=== PATIENT | female | born 1960 | race Caucasian/White ===

== ENCOUNTER → 2016-10-21 | Outpatient (CLI) | payer OTHER ==
[~2016-10-21] VITALS: Ht 158.8 cm; Wt 93.0 kg
[~2016-10-21] MED LIST: LIDOCAINE 2% INJ 100 MG/5 ML SDV (FOR ANES.) As Ordered ONE; LISI10TA2 PO; LOVA40TA PO; NAPR500T2 PO; NS 1,000 ML IV SCH; OMEP20CA3 PO; PROPOFOL 200 MG/20 ML VIAL As Ordered ONE; VICO5TAB16 PO
--- NOTE | 2016-10-21 08:53 | ROOR ---
Patient Name: Fritz Moon Procedure Date: 10/21/2016 8:28 AM Date of : 1960 Age: 56 Room: [facility] Gender: Female Note Status: Finalized Procedure: Upper GI endoscopy Indications: Heartburn Providers: DO Darrel Soliz MD: Darcy Jewell NP Requesting Provider: Medicines: Propofol per Anesthesia Complications: No immediate complications. Estimated blood loss: Minimal. Procedure: Pre-Anesthesia Assessment: - Prior to the procedure, a History and Physical was performed, and patient medications and allergies were reviewed. The patient is competent. The risks and benefits of the procedure and the sedation options and risks were discussed with the patient. All questions were answered and informed consent was obtained. Patient identification and proposed procedure were verified by the physician, the nurse, the anesthesiologist and the communications engineering technician in the endoscopy suite. Mental Status Examination: alert and oriented. Airway Examination: normal oropharyngeal airway and neck mobility. Respiratory Examination: clear to auscultation. CV Examination: normal. Prophylactic Antibiotics: The patient does not require prophylactic antibiotics. Prior Anticoagulants: The patient has taken no previous anticoagulant or antiplatelet agents. ASA Grade Assessment: II - A patient with mild systemic disease. After reviewing the risks and benefits, the patient was deemed in satisfactory condition to undergo the procedure. The anesthesia plan was to use monitored anesthesia care (MAC). Immediately prior to administration of medications, the patient was re-assessed for adequacy to receive sedatives. The heart rate, respiratory rate, oxygen saturations, blood pressure, adequacy of pulmonary ventilation, and response to care were monitored throughout the procedure. The physical status of the patient was re-assessed after the procedure. The Endoscope was introduced through the mouth, and advanced to the second part of duodenum. The upper GI endoscopy was accomplished without difficulty. The patient tolerated the procedure well. Findings: A small hiatal hernia was present. Localized mild inflammation characterized by congestion (edema), erythema and friability was found in the prepyloric region of the stomach. Biopsies were taken with a cold forceps for Helicobacter pylori testing. Estimated blood loss was minimal. The exam was otherwise without abnormality. Impression: - Small hiatal hernia. - Gastritis. Biopsied. - The examination was otherwise normal. Recommendation: - Patient has a contact number available for emergencies. The signs and symptoms of potential delayed complications were discussed with the patient. Return to normal activities tomorrow. Written discharge instructions were provided to the patient. - Return to my office PRN. Bertin Sommer DO 10/21/2016 8:53:23 AM This report has been signed electronically. Number of Addenda: 0 Note Initiated On: 10/21/2016 8:28 AM Estimated Blood Loss: Estimated blood loss was minimal.
--- NOTE | 2016-10-21 08:55 | ROOR ---
Patient Name: Fritz Moon Procedure Date: 10/21/2016 8:29 AM Date of : 1960 Age: 56 Room: [facility] Gender: Female Note Status: Finalized Procedure: Colonoscopy Indications: Screening for colorectal malignant neoplasm Providers: DO Darrel Soliz MD: Darcy Jewell NP Requesting Provider: Medicines: Propofol per Anesthesia Complications: No immediate complications. Procedure: Pre-Anesthesia Assessment: - Prior to the procedure, a History and Physical was performed, and patient medications and allergies were reviewed. The patient is competent. The risks and benefits of the procedure and the sedation options and risks were discussed with the patient. All questions were answered and informed consent was obtained. Patient identification and proposed procedure were verified by the physician, the nurse, the anesthesiologist and the hvac service technician in the endoscopy suite. Mental Status Examination: alert and oriented. Airway Examination: normal oropharyngeal airway and neck mobility. Respiratory Examination: clear to auscultation. CV Examination: normal. Prophylactic Antibiotics: The patient does not require prophylactic antibiotics. Prior Anticoagulants: The patient has taken no previous anticoagulant or antiplatelet agents. ASA Grade Assessment: II - A patient with mild systemic disease. After reviewing the risks and benefits, the patient was deemed in satisfactory condition to undergo the procedure. The anesthesia plan was to use monitored anesthesia care (MAC). Immediately prior to administration of medications, the patient was re-assessed for adequacy to receive sedatives. The heart rate, respiratory rate, oxygen saturations, blood pressure, adequacy of pulmonary ventilation, and response to care were monitored throughout the procedure. The physical status of the patient was re-assessed after the procedure. The Colonoscope was introduced through the anus and advanced to the cecum, identified by the appendiceal orifice, ileocecal valve and palpation. The colonoscopy was performed without difficulty. The patient tolerated the procedure well. Findings: A few small-mouthed diverticula were found in the sigmoid colon. The exam was otherwise without abnormality on direct and retroflexion views. Impression: - Diverticulosis in the sigmoid colon. - The examination was otherwise normal on direct and retroflexion views. - No specimens collected. Recommendation: - Patient has a contact number available for emergencies. The signs and symptoms of potential delayed complications were discussed with the patient. Return to normal activities tomorrow. Written discharge instructions were provided to the patient. - Repeat colonoscopy in 5-10 years for screening purposes. Bertin Sommer DO 10/21/2016 8:55:17 AM This report has been signed electronically. Number of Addenda: 0 Note Initiated On: 10/21/2016 8:29 AM Estimated Blood Loss: Estimated blood loss was minimal.
[2016-10-21 09:20] VITALS: BP 125/73
== END | disposition home or self-care (01) ==
LOC: M OPP 07:36
PROVIDERS: ATTEND Surgery
DX: Z12.11 Encounter for screening for malignant neoplasm of colon (principal); K57.30 Diverticulosis of large intestine without perforation or abscess without bleeding; R12 Heartburn; K44.9 Diaphragmatic hernia without obstruction or gangrene; K29.70 Gastritis, unspecified, without bleeding; I10 Essential (primary) hypertension; E78.00 Pure hypercholesterolemia, unspecified; R00.1 Bradycardia, unspecified; M19.90 Unspecified osteoarthritis, unspecified site; G47.00 Insomnia, unspecified; Z79.899 Other long term (current) drug therapy

== ENCOUNTER → 2016-10-27 | Outpatient (REF) ==
[~2016-10-27] MED LIST changes: -LIDOCAINE 2% INJ 100 MG/5 ML SDV (FOR ANES.) As Ordered ONE; -NS 1,000 ML IV SCH; -PROPOFOL 200 MG/20 ML VIAL As Ordered ONE
--- NOTE | 2016-10-27 16:33 | REP ---
Partial cervical spine series: Three views: History: Degenerative disc disease. No comparison cervical spine imaging. Findings: AP, open-mouth odontoid, and lateral views are presented. Open-mouth odontoid view is unremarkable. On the AP view there is mild osteoarthritic facet hypertrophy in the mid cervical spine bilaterally. Lateral radiograph shows degenerative disc narrowing and spur formation at C5-6, C6-7, and to a lesser extent, at C3-4. Cervical vertebral body heights are preserved. Alignment is normal. Impression: Degenerative disc and osteoarthritic facet changes. Signed by Jos Burciaga MD 10/27/2016 04:48 P
--- NOTE | 2016-10-27 16:34 | REP ---
Lumbar spine series: Three views: History: Degenerative disc disease. Findings: Lumbar vertebral body heights are preserved. No malalignment is seen. Pedicles and posterior elements are intact. There is moderate facet hypertrophy bilaterally at L5-S1 and L4-5. Psoas margins are symmetric. Sacrum and SI joints are intact. There are clips in right upper quadrant of the abdomen. Degenerative disc narrowing is seen at L4-5, L3-4, and L2-3 with early spur formation. Impression: Degenerative disc disease and osteoarthritic facet changes. Signed by Jos Burciaga MD 10/27/2016 04:48 P
== END ==
LOC: M SMT 13:21
PROVIDERS: ATTEND Internal Medicine
DX: M54.5 Low back pain (principal)

== ENCOUNTER 2017-01-26 17:58 | Emergency (ER) | payer OTHER ==
[~2017-01-26 17:58] MED LIST changes: -NAPR500T2 PO; +NAPR500T3 PO
[2017-01-26] MEDS ORDERED: ONDANSETRON 4MG/2ML VIAL (J2405) As Ordered ONE (18:14)
[2017-01-26] MEDS ORDERED: ASPIRIN 81 MG CHEW TABLET PO ONE (18:15)
[2017-01-26] MEDS ORDERED: PANTOPRAZOLE 40MG INJ (PROTONIX) (C9113) IV ONE (18:15)
[2017-01-26] MEDS ORDERED: ONDANSETRON 4MG/2ML VIAL (J2405) IV ONE ×2 (18:15→19:00)
--- NOTE | 2017-01-26 18:33 | ECGEPIP ---
Stationary ECG Study [facility] - ED Test Date: 2017-01-26 Pat Name: TULIO SCANLON Department: Room: - Gender: F Library Page: meghann : 1960 Requested By: BASSEM Mandel Order Number: [id number] Reading MD: Teresa Perez Measurements Intervals [place] Rate: 93 P: 17 NE: 179 QRS: 8 QRSD: 96 T: 21 QT: 309 QTc: 386 Interpretive Statements SINUS RHYTHM INFERIOR MYOCARDIAL INFARCTION, PROBABLY OLD EARLY R PROGRESSION NSTTW ABNORALITY NO PRIOR FOR COMPARISON Electronically Signed On 01-26-2017 18:32:46 EDT by Teresa Perez
[2017-01-26 18:40] LABS: BASO # 0.1 K/mm3 (0.0-0.2); BASO % 0.7 % (0.0-1.0); EOS # 0.1 K/mm3 (0.0-0.50); EOS % 0.7 % (0.0-3.0); LARGE UNSTAINED CELL # 0.1 K/mm3 (0.0-0.4); LARGE UNSTAINED CELL % 0.8 % (0.0-4.0); LYMPH # 1.5 K/mm3 (1.5-4.5); LYMPH % 15.6 % (24.0-44.0); MEAN CORPUSCULAR HEMOGLOBIN 31.4 pg (27.0-33.0); MEAN CORPUSCULAR HGB CONC 35.1 g/dl (32.0-36.5); MEAN CORPUSCULAR VOLUME 89.6 fl (80.0-96.0); MONO # 0.3 K/mm3 (0.0-0.8); MONO % 3.1 % (0.0-5.0); NEUTROPHILS # 7.8 K/mm3 (1.8-7.7); NEUTROPHILS % 79.2 % (36.0-66.0); PLATELET COUNT, AUTOMATED 266 k/mm3 (150-450); RED CELL DISTRIBUTION WIDTH 11.9 % (11.5-14.5); WHITE BLOOD COUNT 9.8 K/mm3 (4.0-10.0)
--- NOTE | 2017-01-26 18:41 | REP ---
REASON: Chest pain. COMPARISON: None. FINDINGS: The technique utilized in obtaining the radiograph has magnified the cardiac silhouette and accentuated the interstitial markings. The superior mediastinal structures are midline. The cardiac silhouette is unremarkable in size, shape, and position. The diaphragmatic surfaces of the lungs are regular, and the costophrenic angles are clear. The pulmonary huitron are clear. The imaged osseous structures are intact. IMPRESSION: There is no acute cardiopulmonary disease. Signed by Cosme Roland DO 01/26/2017 07:52 P
[2017-01-26 18:59] LABS: CALCIUM LEVEL 10.3 MG/DL (8.5-10.1); CREATININE FOR GFR 1.08 MG/DL (0.55-1.02); GLOMERULAR FILTRATION RATE 56.3 (>51)
[2017-01-26] MEDS ORDERED: ISOVUE-370 76% 100ML VIAL (Q9967) As Ordered ONE (19:20)
--- NOTE | 2017-01-26 19:50 | REPUSA ---
CT angiogram of the chest Clinical statement: Chest pain and shortness of breath. Technique: Multiple axial CT images were obtained from the thoracic inlet through the upper abdomen a fter a bolus administration of nonionic intravenous contrast. Coronal and sagittal reconstructions we re also obtained. No comparison is available. Findings: The pulmonary arteries are well-opacified with contrast, with no intraluminal filling defec ts to suggest embolism. The thoracic aorta is unremarkable. There is a large low attenuation lesion i n the right lobe of the thyroid measuring 1.9 x 1.1 cm. There is no thoracic lymphadenopathy. There a re no pericardial or pleural effusions. The lungs are clear. Limited imaging of the upper abdomen is unremarkable. There are no suspicious osseous lesions. Impression: Unremarkable CT examination of the chest. No evidence of pulmonary embolism.
[2017-01-26] MEDS ORDERED: KETOROLAC 30 MG/ML VIAL (J1885) IV ONE (21:45)
[2017-01-26] MEDS ORDERED: NS 500 ML IV ONE (21:45)
[2017-01-26] MEDS ORDERED: PROMETHAZINE INJ 25 MG/ML VIAL (J2550) IV ONE (23:30)
[2017-01-27 00:27] VITALS: BP 144/69
--- NOTE | 2017-01-27 21:42 | ECGEPIP ---
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
[2017-04-14] MEDS ORDERED: TYLE1TAB5 PO (13:54)
== END 2017-01-27 00:35 | disposition short-term general hospital (02) ==
LOC: M ED 17:58 → EDBD 17:58 → M ED 01-27 00:35
DX: R07.9 Chest pain, unspecified (principal); R74.8 Abnormal levels of other serum enzymes; R00.0 Tachycardia, unspecified; I10 Essential (primary) hypertension

== ENCOUNTER 2017-06-14 08:56 | Day surgery (SDC) | payer OTHER ==
[~2017-06-14] VITALS: Ht 157.5 cm; Wt 88.8 kg
[~2017-06-14 08:56] MED LIST changes: +TYLE1TAB5 PO
[2017-06-14] MEDS ORDERED: LR 1,000 ML IV ONE (09:15)
[2017-06-14] MEDS ORDERED: LIDOCAINE 1% MDV 20ML VIAL SQ PRN (09:15)
[2017-06-14] MEDS ORDERED: MIDAZOLAM INJ 2 MG/2 ML VIAL (J2250) As Ordered ONE (10:27)
[2017-06-14] MEDS ORDERED: ONDANSETRON 4MG/2ML VIAL (J2405) As Ordered ONE (10:27)
[2017-06-14] MEDS ORDERED: LIDOCAINE 2% INJ 100 MG/5 ML SDV (FOR ANES.) As Ordered ONE (10:27)
[2017-06-14] MEDS ORDERED: ROCURONIUM BROMIDE 50 MG/5 ML VIAL As Ordered ONE (10:27)
[2017-06-14] MEDS ORDERED: METOCLOPRAMIDE INJ 10MG/2ML VIAL (J2765) As Ordered ONE (10:27)
[2017-06-14] MEDS ORDERED: PROPOFOL 200 MG/20 ML VIAL As Ordered ONE (10:27)
[2017-06-14] MEDS ORDERED: fentaNYL 100 MCG/2 ML INJECTION (J3010) As Ordered ONE ×2 (10:28→12:59)
[2017-06-14] MEDS ORDERED: MUPIROCIN 2% OINT 22 GM TUBE As Ordered ONE (11:27)
[2017-06-14] MEDS ORDERED: LIDOCAINE W/EPINEPHRINE 1% 20ML VIAL As Ordered ONE (11:27)
[2017-06-14] MEDS ORDERED: dexameTHASONE 4 MG/ML 1ML VIAL (J1100) As Ordered ONE (12:24)
[2017-06-14] MEDS ORDERED: REMIFENTANIL 1MG 3ML VIAL As Ordered ONE (12:25)
[2017-06-14] MEDS ORDERED: SUCCINYLCHOLINE 100 MG/5 ML SYRINGE (J0330) As Ordered ONE (12:26)
[2017-06-14] MEDS ORDERED: ACETAMINOPH W/CODEINE #3 TAB UD PO PRN (14:45)
[2017-06-14] MEDS ORDERED: ONDANSETRON 4MG/2ML VIAL (J2405) IV PRN (14:45)
[2017-06-14] MEDS ORDERED: LR 1,000 ML IV SCH ×2 (14:45→15:00)
[2017-06-14] MEDS: fentaNYL 100 MCG/2 ML INJECTION (J3010) IV PRN ×2 (15:00→15:10)
[2017-06-14 17:15] VITALS: BP 166/86
[2017-06-14] MEDS ORDERED: ACETAMINOPH W/CODEINE #3 TAB UD PO ONE (17:15)
--- NOTE | 2017-06-14 18:19 | RO ---
DATE OF PROCEDURE: 06/14/2017 PREPROCEDURE DIAGNOSIS: Right thyroid mass. POSTPROCEDURE DIAGNOSIS: Right thyroid mass. PROCEDURE: Right thyroid lobectomy. SURGEON: Dr. Yash Chowdary MANHOLE BUILDER: Dr. Burton and Dr. Condon ANESTHESIA: DESCRIPTION OF PROCEDURE: Under general anesthesia with the patient intubated with a NIM tube, the patient was draped in the usual manner. I marked out the skin incision and infiltrated with lidocaine and epinephrine. I divided the skin and subcutaneous tissues and platysma. I dissected down to the strap muscles, then divided between the strap muscles. I elevated superiorly and inferiorly. I then went down to the thyroid. I dissected down through the sternothyroid muscle and divided that. I then dissected around the gland. I divided the superior pole vessels. I then went around the inferior pole vessels and then divided the isthmus. I dissected the thyroid off the trachea. I then went laterally and dissected close to the gland, preserving the superior parathyroid on the right side. I did not see the inferior parathyroid, assumed it was in the soft tissues that was dissected free. I went completely around the right thyroid lobe. Once this was done, then I delivered it from the wound. Afterwards, the recurrent laryngeal nerve was identified and stimulated. Bleeding was controlled with bipolar cautery. I did use the Harmonic scalpel during the procedure. Less than 10 mL estimated blood loss. Surgicel was placed in the wound. I closed the wound with #4-0 Vicryl and #5-0 nylon.
== END 2017-06-14 17:40 | disposition home or self-care (01) ==
LOC: M SDC 08:56
PROVIDERS: ATTEND Otolaryngology
DX: E04.1 Nontoxic single thyroid nodule (principal); I10 Essential (primary) hypertension; R94.31 Abnormal electrocardiogram [ECG] [EKG]; R00.2 Palpitations; E78.2 Mixed hyperlipidemia; E66.8 Other obesity; E78.00 Pure hypercholesterolemia, unspecified; E03.9 Hypothyroidism, unspecified; G43.909 Migraine, unspecified, not intractable, without status migrainosus; K21.9 Gastro-esophageal reflux disease without esophagitis; M17.11 Unilateral primary osteoarthritis, right knee; R06.83 Snoring; Z79.899 Other long term (current) drug therapy; Z90.710 Acquired absence of both cervix and uterus

== ENCOUNTER → 2017-06-29 | Outpatient (CLI) | payer OTHER ==
[2017-06-29 12:19] LABS: MEAN CORPUSCULAR HEMOGLOBIN 30.2 pg (27.0-33.0); MEAN CORPUSCULAR HGB CONC 33.3 g/dl (32.0-36.5); MEAN CORPUSCULAR VOLUME 90.5 fl (80.0-96.0); PLATELET COUNT, AUTOMATED 252 10^3/uL (150-450); RED CELL DISTRIBUTION WIDTH 11.9 % (11.5-14.5); WHITE BLOOD COUNT 6.2 10^3/uL (4.0-10.0)
== END ==
LOC: M LAB 11:55
PROVIDERS: ATTEND Otolaryngology
DX: E04.1 Nontoxic single thyroid nodule (principal)

== ENCOUNTER → 2017-10-19 | Outpatient (CLI) | payer OTHER ==
[2017-10-19 15:09] LABS: FREE T4 1.41 NG/DL (0.76-1.46)
== END ==
LOC: M LAB 14:08
DX: E03.9 Hypothyroidism, unspecified (principal)
CPT/HCPCS: 84443

== ENCOUNTER → 2018-03-26 | Outpatient (CLI) | payer OTHER ==
[2018-03-26 11:50] LABS: HEMATOCRIT 43.8 % (36.0-47.0); HEMOGLOBIN 14.6 g/dl (12.0-15.5); MEAN CORPUSCULAR HEMOGLOBIN 30.5 pg (27.0-33.0); MEAN CORPUSCULAR HGB CONC 33.3 g/dl (32.0-36.5); MEAN CORPUSCULAR VOLUME 91.6 fl (80.0-96.0); PLATELET COUNT, AUTOMATED 240 10^3/uL (150-450); RED BLOOD COUNT 4.78 10^6/uL (4.00-5.40); RED CELL DISTRIBUTION WIDTH 11.8 % (11.5-14.5); WHITE BLOOD COUNT 7.9 10^3/uL (4.0-10.0)
[2018-03-26 12:02] LABS: INR 0.83; PROTHROMBIN TIME 11.4 SECONDS (12.1-14.4)
[2018-03-26 12:16] LABS: ALBUMIN 5.1 GM/DL (3.2-5.2); ALBUMIN/GLOBULIN RATIO 1.82 (1.00-1.93); ALKALINE PHOSPHATASE 79 U/L (45-117); ALT/SGPT 24 U/L (12-78); ANION GAP 8 MEQ/L (8-16); AST/SGOT 15 U/L (7-37); BILIRUBIN,TOTAL 0.6 MG/DL (0.2-1.0); BLOOD UREA NITROGEN 22 MG/DL (7-18); CALCIUM LEVEL 10.2 MG/DL (8.5-10.1); CARBON DIOXIDE LEVEL 27 MEQ/L (21-32); CHLORIDE LEVEL 104 MEQ/L (98-107); CREATININE FOR GFR 0.85 MG/DL (0.55-1.30); GLOMERULAR FILTRATION RATE > 60.0 (>51); GLUCOSE, FASTING 89 MG/DL (70-100); POTASSIUM SERUM 4.1 MEQ/L (3.5-5.1); SODIUM LEVEL 139 MEQ/L (136-145); TOTAL PROTEIN 7.9 GM/DL (6.4-8.2)
[2018-03-26 12:22] LABS: ERYTHROCYTE SEDIMENTATION RATE 6 mm/hr (0-30)
== END ==
LOC: M LAB 10:59
DX: R00.1 Bradycardia, unspecified (principal); E07.9 Disorder of thyroid, unspecified
CPT/HCPCS: 71046

== ENCOUNTER 2018-04-26 08:05 | Inpatient (IN) | payer OTHER ==
[2018-04-26] MEDS: LIDOCAINE 1% SDV 5 ML VIAL SQ (07:00)
[2018-04-26] MEDS ORDERED: PROPOFOL 200 MG/20 ML VIAL As Ordered ×5 (08:21→11:07)
[2018-04-26] MEDS ORDERED: LIDOCAINE 2% INJ 100 MG/5 ML SDV (FOR ANES.) As Ordered (08:21)
[2018-04-26] MEDS ORDERED: dexameTHASONE 4 MG/ML 1ML VIAL (J1100) As Ordered (08:21)
[2018-04-26] MEDS ORDERED: ONDANSETRON 4MG/2ML VIAL (J2405) As Ordered (08:21)
[2018-04-26] MEDS: LR 1,000 ML IV ×4 (08:40→20:22)
[2018-04-26] MEDS: BUPIVACAINE LIPOSOME/PF 1.3% 20 ML VIAL (13.3MG/ML)(EXPAREL) As Ordered ×2 (08:58→11:00)
[2018-04-26] MEDS ORDERED: MIDAZOLAM INJ 2 MG/2 ML VIAL (J2250) As Ordered (09:16)
[2018-04-26] MEDS ORDERED: fentaNYL 100 MCG/2 ML INJECTION (J3010) As Ordered (09:16)
[2018-04-26] MEDS: MIDAZOLAM INJ 2 MG/2 ML VIAL (J2250) IV ×2 (09:38→09:40)
[2018-04-26] MEDS: fentaNYL 100 MCG/2 ML INJECTION (J3010) IV ×2 (09:38→09:43)
[2018-04-26] MEDS ORDERED: BUPIVACAINE/DEXTROSE 0.75% 2 ML AMP As Ordered (10:08)
[2018-04-26] MEDS: TRANEXAMIC ACID 100 MG/ML 10ML VIAL As Ordered (10:58)
[2018-04-26] MEDS: EPINEPHrine INJ 1 MG/ML 1ML AMP As Ordered (10:58)
[2018-04-26] MEDS: ceFAZolin 1GM INJ (J0690 PER 500MG) As Ordered (10:59)
[2018-04-26] MEDS ORDERED: KETOROLAC 60 MG/2 ML VIAL (J1885) As Ordered (11:19)
[2018-04-26] MEDS ORDERED: MORPHINE 1MG/ML IN 0.9% NACL 100ML IV BAG As Ordered (11:50)
[2018-04-26] MEDS ORDERED: diphenhydrAMINE INJ 50MG/ML VIAL (J1200) IV (12:00)
[2018-04-26] MEDS ORDERED: EPIDURAL/PCA KEYS XX (12:00)
[2018-04-26] MEDS ORDERED: ONDANSETRON 4MG/2ML VIAL (J2405) IV ×2 (12:00→12:15)
[2018-04-26] MEDS ORDERED: ACETAMINOPHEN TAB 650MG DOSE (2X325MG) PO (12:00)
[2018-04-26] MEDS ORDERED: NALOXONE INJ 0.4 MG/1 ML VIAL (J2310) IV (12:00)
[2018-04-26] MEDS ORDERED: FLEET ENEMA PR (12:00)
[2018-04-26] MEDS ORDERED: NALBUPHINE HCL 10 MG/ML AMP (J2300) IV (12:00)
[2018-04-26] MEDS ORDERED: PERCOCET 5MG/325MG TAB PO (12:15)
[2018-04-26] MEDS ORDERED: MEPERIDINE INJ 25 MG/ML VIAL (J2175) IV (12:15)
[2018-04-26] MEDS ORDERED: fentaNYL 100 MCG/2 ML INJECTION (J3010) IV (12:15)
[2018-04-26] MEDS: MORPHINE 1MG/ML IN 0.9% NACL 100ML IV BAG IV (12:28)
[2018-04-26] MEDS: ONDANSETRON 4MG/2ML VIAL (J2405) IV (12:29)
[2018-04-26] MEDS: METOCLOPRAMIDE INJ 10MG/2ML VIAL (J2765) IV (12:29)
[2018-04-26] MEDS ORDERED: ROPIvacaine 0.5% 30 ML INJECTION (J2795 PER 1MG) (13:59)
[2018-04-26] MEDS ORDERED: dexameTHASONE 10 MG/1 ML VIAL PRES.FREE (J1100) (13:59)
[2018-04-26] MEDS ORDERED: EPINEPHrine INJ 1 MG/ML 1ML AMP (13:59)
[2018-04-26] MEDS: SIMVASTATIN 40 MG TAB PO (20:22)
[2018-04-27] MEDS: LEVOTHYROXINE 100MCG TABLET (0.1MG) PO (05:50)
[2018-04-27] MEDS ORDERED: PERCOCET 5MG/325MG TAB PO (06:30)
[2018-04-27 07:07] LABS: HEMATOCRIT 32.3 % (36.0-47.0); HEMOGLOBIN 10.8 g/dl (12.0-15.5); MEAN CORPUSCULAR HEMOGLOBIN 30.5 pg (27.0-33.0); MEAN CORPUSCULAR HGB CONC 33.4 g/dl (32.0-36.5); MEAN CORPUSCULAR VOLUME 91.2 fl (80.0-96.0); PLATELET COUNT, AUTOMATED 209 10^3/uL (150-450); RED BLOOD COUNT 3.54 10^6/uL (4.00-5.40); RED CELL DISTRIBUTION WIDTH 11.9 % (11.5-14.5); WHITE BLOOD COUNT 12.6 10^3/uL (4.0-10.0)
[2018-04-27] MEDS: MIRALAX *UNIT DOSE* 17GM PACKET PO (09:00)
[2018-04-27] MEDS ORDERED: LISINOPRIL 10 MG TAB PO (09:00)
[2018-04-27] MEDS ORDERED: hydroCHLOROthiazide 12.5 MG CAPSULE PO (09:00)
[2018-04-27] MEDS: PERCOCET 5MG/325MG TAB PO ×2 (09:28→13:28)
[2018-04-27] MEDS: SENOKOT S TAB PO (09:28)
[2018-04-27] MEDS: OMEPRAZOLE 20 MG CAP PO (09:28)
[2018-04-27] MEDS: MOM 30ML SUSPENSION UDC PO (09:28)
[2018-04-27] MEDS: FLUBLOK(EGG FREE)(QUAD)INFLUENZA VACC 0.5ML SYRINGE (90682)18YRS&OLDER IM (09:30)
[2018-04-27] MEDS: ONDANSETRON 4 MG TAB (S0181) PO (14:12)
[2018-04-27] MEDS ORDERED: RIVAROXABAN 10 MG TAB (XARELTO) PO (18:00)
== END 2018-04-27 14:25 | disposition home health service (06) | DRG 302 ==
LOC: M OR 08:05 → M MS5PR 14:10
PROC: 0SRC0J9 Replacement of Right Knee Joint with Synthetic Substitute, Cemented, Open Approach (ICD-10-PCS; principal; 2018-04-26 10:08)
DX: M17.11 Unilateral primary osteoarthritis, right knee (principal); I10 Essential (primary) hypertension; Z79.899 Other long term (current) drug therapy; K21.9 Gastro-esophageal reflux disease without esophagitis; E03.9 Hypothyroidism, unspecified; E78.5 Hyperlipidemia, unspecified

== ENCOUNTER → 2019-01-03 | Outpatient (CLI) | payer OTHER ==
[~2019-01-03] MED LIST changes: +NAPR-885 PO; -NAPR500T3 PO; +PERC5TAB12 PO; +SYNT100T PO; -VICO5TAB16 PO; +VICO5TAB17 PO; +XARE10TA PO
[2019-01-03 19:09] LABS: BASO % 0.5 % (0.0-1.0); EOS # 0.1 10^3/uL (0.0-0.50); EOS % 1.1 % (0.0-3.0); HEMATOCRIT 44.7 % (36.0-47.0); HEMOGLOBIN 14.6 g/dl (12.0-15.5); LYMPH # 2.1 10^3/uL (1.5-4.5); LYMPH % 27.4 % (24.0-44.0); MEAN CORPUSCULAR HEMOGLOBIN 30.4 pg (27.0-33.0); MEAN CORPUSCULAR HGB CONC 32.7 g/dl (32.0-36.5); MEAN CORPUSCULAR VOLUME 93.1 fl (80.0-96.0); MONO # 0.4 10^3/uL (0.0-0.8); MONO % 5.6 % (0.0-5.0); NEUTROPHILS # 4.9 10^3/uL (1.8-7.7); PLATELET COUNT, AUTOMATED 247 10^3/uL (150-450); WHITE BLOOD COUNT 7.5 10^3/uL (4.0-10.0)
[2019-01-03 19:14] LABS: BLOOD UREA NITROGEN 10 MG/DL (7-18); CARBON DIOXIDE LEVEL 29 MEQ/L (21-32); CHLORIDE LEVEL 103 MEQ/L (98-107); CHOLESTEROL LEVEL 210 MG/DL (<200); CHOLESTEROL RISK RATIO 3.088 (<5); CREATININE FOR GFR 0.72 MG/DL (0.55-1.30); GLOMERULAR FILTRATION RATE > 60.0 (>51); GLUCOSE, FASTING 91 MG/DL (70-100); HDL CHOLESTEROL 68 MG/DL (>40); LDL CHOLESTEROL 108 MG/DL (<100); NON-HDL-C 142 MG/DL; POTASSIUM SERUM 4.1 MEQ/L (3.5-5.1); SODIUM LEVEL 138 MEQ/L (136-145); TRIGLYCERIDES LEVEL 168 MG/DL (<150)
== END ==
LOC: M SMT 10:49
PROVIDERS: ATTEND Physician Assistant
DX: I10 Essential (primary) hypertension (principal)

== ENCOUNTER → 2019-11-24 | Outpatient (REF) | payer OTHER ==
[~2019-11-24] MED LIST changes: +LISI10TA15 PO; -LISI10TA2 PO; +OMEP1CAP73 PO; -OMEP20CA3 PO
[2019-11-24 17:41] LABS: APPEARANCE, URINE CLEAR (CLEAR); BACTERIA, URINE AUTO NEGATIVE (NEGATIVE); BILIRUBIN, URINE AUTO NEGATIVE (NEGATIVE); BLOOD, URINE BLOOD NEGATIVE (NEGATIVE); COLOR, URINE STRAW (YELLOW); GLUCOSE, URINE (UA) AUTO NEGATIVE (NEGATIVE); KETONE, URINE AUTO NEGATIVE (NEGATIVE); LEUKOCYTE ESTERASE, URINE AUTO NEGATIVE (NEGATIVE); NITRITE, URINE AUTO NEGATIVE (NEGATIVE); PROTEIN, URINE AUTO NEGATIVE (NEGATIVE); RBC, URINE AUTO 0 /HPF (0-3); SPECIFIC GRAVITY URINE AUTO 1.006 (1.002-1.035); SQUAMOUS EPITHELIAL CELL UR AU 0 /HPF (0-6); UROBILINOGEN, URINE AUTO 0.2 mg/dL (0.0-2.0); WBC, URINE AUTO 0 /HPF (0-3)
== END ==
LOC: M LAB REF 16:11
PROVIDERS: ATTEND Physician Assistant
DX: N39.0 Urinary tract infection, site not specified (principal)

== ENCOUNTER → 2022-03-19 | Outpatient (CLI) | payer OTHER ==
[~2022-03-19] MED LIST changes: -LISI10TA15 PO; +LISI10TA24 PO
[2022-03-19 10:44] LABS: BLOOD UREA NITROGEN 11 MG/DL (7-18); CALCIUM LEVEL 10.1 MG/DL (8.5-10.1); CARBON DIOXIDE LEVEL 28 MEQ/L (21-32); CHLORIDE LEVEL 104 MEQ/L (98-107); CREATININE FOR GFR 0.76 MG/DL (0.55-1.30); GLOMERULAR FILTRATION RATE > 60.0 (>51); GLUCOSE, FASTING 92 MG/DL (70-100); POTASSIUM SERUM 3.8 MEQ/L (3.5-5.1); SODIUM LEVEL 137 MEQ/L (136-145)
== END ==
LOC: M RAD 09:01
PROVIDERS: ATTEND Orthopaedic Surgery
DX: G56.02 Carpal tunnel syndrome, left upper limb (principal); G56.22 Lesion of ulnar nerve, left upper limb

== ENCOUNTER 2023-05-26 11:56 | Emergency (ER) | payer OTHER ==
[~2023-05-26] VITALS: Ht 157.5 cm; Wt 94.0 kg
[2023-05-26] MEDS ORDERED: QC F0.52 PO (12:11)
[2023-05-26] MEDS ORDERED: VALA500T5 PO (12:11)
[2023-05-26] MEDS ORDERED: COLA100C5 PO (12:11)
[2023-05-26] MEDS ORDERED: CALCTAB89 PO (12:11)
[2023-05-26] MEDS ORDERED: GABA-1171 PO (12:11)
[2023-05-26] MEDS ORDERED: NOXI1TAB PO (12:11)
[2023-05-26] MEDS ORDERED: IBUP-1022 PO (13:52)
[2023-05-26 14:04] VITALS: BP 184/101; TEMP 98.5; O2SAT 99
== END 2023-05-26 14:08 | disposition home or self-care (01) ==
LOC: M ED 11:56
DX: M77.11 Lateral epicondylitis, right elbow (principal); I10 Essential (primary) hypertension; E78.5 Hyperlipidemia, unspecified; K21.9 Gastro-esophageal reflux disease without esophagitis; E03.9 Hypothyroidism, unspecified; Z79.899 Other long term (current) drug therapy

== ENCOUNTER 2023-07-25 11:01 | Emergency (ER) | payer OTHER ==
[~2023-07-25] VITALS: Ht 157.5 cm; Wt 92.0 kg
[~2023-07-25 11:01] MED LIST changes: +CALCTAB89 PO; +COLA100C5 PO; +GABA-1171 PO; +IBUP-1022 PO; +NOXI1TAB PO; +QC F0.52 PO; +VALA500T5 PO
[2023-07-25] MEDS ORDERED: ONDANSETRON 4MG 2ML VIAL IV ONE (11:30)
[2023-07-25 14:15] VITALS: BP 150/81
[2023-07-25 14:31] VITALS: TEMP 97; O2SAT 97
== END 2023-07-25 14:57 | disposition home or self-care (01) ==
LOC: M ED 11:01 → EDBD 11:01 → M ED 14:57
DX: S06.0X0A Concussion without loss of consciousness, initial encounter (principal); S80.02XA Contusion of left knee, initial encounter; S40.011A Contusion of right shoulder, initial encounter; W01.0XXA Fall on same level from slipping, tripping and stumbling without subsequent striking against object, initial encounter; F10.10 Alcohol abuse, uncomplicated; E78.5 Hyperlipidemia, unspecified; I10 Essential (primary) hypertension; Y92.9 Unspecified place or not applicable; Y93.89 Activity, other specified; Y99.0 Civilian activity done for income or pay; Z79.891 Long term (current) use of opiate analgesic; Z79.02 Long term (current) use of antithrombotics/antiplatelets; Z79.811 Long term (current) use of aromatase inhibitors; Z79.899 Other long term (current) drug therapy
CPT/HCPCS: 70450; 72125; 73030; 73564; 96374; 99285; J2405

== ENCOUNTER 2024-02-03 10:08 | Observation (INO) | payer OTHER ==
[~2024-02-03] VITALS: Ht 157.5 cm; Wt 95.5 kg
[2024-02-03] MEDS ORDERED: MECL-86 PO (10:22)
[2024-02-03] MEDS ORDERED: METH-1164 PO (10:22)
[2024-02-03] MEDS ORDERED: ISOVUE-370 76% 100ML VIAL As Ordered ONE (12:10)
[2024-02-03] MEDS: NS 1,000 ML IV ONE ×2 (12:40→13:52)
[2024-02-03 12:46] LABS: BASO # 0.1 10^3/uL (0.0-0.2); BASO % 0.9 % (0.0-1.0); EOS % 0.6 % (0.0-3.0); HEMATOCRIT 50.4 % (36.0-47.0); HEMOGLOBIN 16.9 g/dl (12.0-15.5); LYMPH # 1.9 10^3/uL (1.5-5.0); MEAN CORPUSCULAR HEMOGLOBIN 31.6 pg (27.0-33.0); MEAN CORPUSCULAR HGB CONC 33.5 g/dl (32.0-36.5); MEAN CORPUSCULAR VOLUME 94.4 fl (80.0-96.0); MONO # 0.3 10^3/uL (0.0-0.8); MONO % 4.4 % (2.0-8.0); NEUTROPHILS # 4.7 10^3/uL (1.5-8.5); NEUTROPHILS % 66.8 % (36.0-66.0); PLATELET COUNT, AUTOMATED 256 10^3/uL (150-450); RED BLOOD COUNT 5.34 10^6/uL (4.00-5.40)
[2024-02-03 13:04] LABS: INR 0.98; PROTHROMBIN TIME 12.7 SECONDS (12.5-14.5)
[2024-02-03 13:10] LABS: CK-MB VALUE MASS < 1.0 NG/ML (<3.6)
[2024-02-03 13:14] LABS: THYROID STIMULATING HORMONE 0.341 uIU/ML (0.55-4.78)
[2024-02-03 13:15] LABS: CPK CREATINE PHOSPHOKINASE 60 U/L (34-145); FREE T4 1.69 NG/DL (0.89-1.76); MB/CK RELATIVE INDEX 1.66 (< OR =4)
[2024-02-03 13:16] LABS: ALBUMIN 4.9 G/DL (3.2-5.2); ALKALINE PHOSPHATASE 100 U/L (46-116); ALT/SGPT 26 U/L (7.0-40); AST/SGOT 11 U/L (<34); BILIRUBIN,TOTAL 0.7 MG/DL (0.3-1.2); BLOOD UREA NITROGEN 9 MG/DL (9-23); CALCIUM LEVEL 10.9 MG/DL (8.3-10.6); CARBON DIOXIDE LEVEL 29 MMOL/L (20-31); CHLORIDE LEVEL 105 MMOL/L (98-107); CREATININE FOR GFR 0.74 MG/DL (0.55-1.30); GLOMERULAR FILTRATION RATE > 60.0 (>45); GLUCOSE, FASTING 93 MG/DL (74-106); MAGNESIUM LEVEL 2.5 MG/DL (1.8-2.4); POTASSIUM SERUM 4.1 MMOL/L (3.5-5.1); SODIUM LEVEL 140 MMOL/L (136-145)
[2024-02-03 17:41] LABS: ERYTHROCYTE SEDIMENTATION RATE 27 mm/hr (0-30)
[2024-02-03 18:46] VITALS: TEMP 97.3
[2024-02-03] MEDS: ASPIRIN 81MG CHEW TABLET PO ONE (18:53)
[2024-02-03 19:47] LABS: VITAMIN B12 LEVEL 424 PG/ML (211-911)
[2024-02-03] MEDS ORDERED: MECLIZINE 25 MG TABLET PO PRN (21:10)
[2024-02-03] MEDS: ACETAMINOPHEN TAB 650MG DOSE (2X325MG) PO PRN (22:08)
[2024-02-03] MEDS ORDERED: PROHANCE 279.3MG/ML 5ML VIAL As Ordered ONE (22:21)
[2024-02-03] MEDS ORDERED: PROHANCE 279.3MG/ML 15ML VIAL As Ordered ONE (22:21)
[2024-02-03 23:05] VITALS: BP 157/67; O2SAT 96
[2024-02-03] MEDS ORDERED: D3 S1CAP3 PO (23:08)
[2024-02-03] MEDS ORDERED: OYST1TAB PO (23:08)
[2024-02-03] MEDS ORDERED: LEVO112T2 PO (23:08)
[2024-02-03] MEDS ORDERED: OMEP40CA5 PO (23:08)
[2024-02-03] MEDS ORDERED: HOME MED LIST COMPLETE! XX SCH (23:10)
[2024-02-03] MEDS: ENOXAPARIN 40MG/0.4ML SYRINGE (J1650 PER 10MG) SC SCH (23:51)
[2024-02-04] MEDS ORDERED: methocarbamoL 500 MG TAB PO PRN (00:50)
[2024-02-04] MEDS ORDERED: NS 1,000 ML IV SCH (00:55)
[2024-02-04] MEDS ORDERED: LEVOTHYROXINE 112MCG TABLET (0.112MG) PO SCH (06:00)
[2024-02-04] MEDS ORDERED: valACYclovir HCL 500 MG TAB PO SCH (09:00)
[2024-02-04] MEDS ORDERED: hydroCHLOROthiazide 12.5 MG CAPSULE PO SCH (09:00)
[2024-02-04] MEDS ORDERED: DOCUSATE SODIUM 100MG CAPSULE PO SCH (09:00)
[2024-02-04] MEDS ORDERED: SIMVASTATIN 20 MG TAB PO SCH (09:00)
[2024-02-04] MEDS ORDERED: DOCUSATE SOD LIQ 100MG/10ML UDC As Ordered ONE (11:43)
[2024-02-04] MEDS ORDERED: SIMVASTATIN 20 MG TAB As Ordered ONE (11:46)
[2024-02-04] MEDS ORDERED: DOCUSATE SODIUM 100MG CAPSULE As Ordered ONE (11:46)
[2024-02-04] MEDS ORDERED: hydroCHLOROthiazide 12.5 MG CAPSULE As Ordered ONE (11:47)
[2024-02-08 04:22] LABS: COPPER PLASMA 112 mcg/dL (70-175)
== END 2024-02-04 16:08 | disposition home or self-care (01) ==
LOC: M ED 10:08 → M ED INP 10:09 → INTOOBSV 10:09
PROVIDERS: ADMIT Preventive Medicine Undersea and Hyperbaric Medicine; ATTEND Preventive Medicine Undersea and Hyperbaric Medicine
DX: R42 Dizziness and giddiness (principal); I16.0 Hypertensive urgency; I10 Essential (primary) hypertension; E78.5 Hyperlipidemia, unspecified; E03.9 Hypothyroidism, unspecified; K21.9 Gastro-esophageal reflux disease without esophagitis; M54.50 Low back pain, unspecified; Z79.899 Other long term (current) drug therapy
CPT/HCPCS: 70450; 70496; 70498; 70551; 70552; 80047; 80053; 82525; 82550; 82553; 82607; 83735; 84425; 84439; 84443; 84484; 85025; 85610; 85652; 85730; 86042; 86140; 93005; 93041; 94760; 96372; 96374; 96376; 97161; 99285; A9576; J1650; Q9967

== ENCOUNTER → 2025-06-25 | Outpatient (CLI) | payer OTHER ==
[~2025-06-25] MED LIST changes: +D3 S1CAP3 PO; -IBUP-1022 PO; +IBUP600T42 PO; +LEVO112T2 PO; +MECL-86 PO; +METH-1164 PO; +OMEP40CA5 PO; +OYST1TAB PO
== END ==
LOC: M PLAIMG 12:58
PROVIDERS: ATTEND Physical Medicine & Rehabilitation
DX: G44.329 Chronic post-traumatic headache, not intractable (principal); S06.0X0S Concussion without loss of consciousness, sequela; H53.9 Unspecified visual disturbance